=== PATIENT | female | born 1965 | race Caucasian/White ===

== ENCOUNTER 2017-02-25 13:47 | Emergency (ER) | payer OTHER ==
[~2017-02-25 13:47] MED LIST: LORA-392 PO; Z.0.NO CURRENT MEDS
[2017-02-25 13:53] VITALS: BP 192/83; PULSE 94; RESP 20; TEMP 98.4; O2SAT 97
[2017-02-25] MEDS ORDERED: DOXY100C PO (14:13)
[2017-02-25] MEDS ORDERED: MEDR4PAK PO (14:13)
--- NOTE | 2017-02-25 14:14 | PD ---
HPI Chief Complaint: Neuro Symptoms/ Deficits Time Seen by Provider: 14:04 Travel History International Travel<30 days: No Contact w/Intl Traveler<30days: No Traveled to known affect area: No History of Present Illness HPI PATIENT C/O RIGHT SIDED FACE UNEQUAL ABILITY TO MOVE MUSCLES SINCE 7AM, HAS BEEN TAKING CARE OF DOGS THAT HANG OUT WITH DEERS AND SHE REMOVED TICKS FROM THEM. ABLE TO TOLERATED PO AND ABLE TO SWALLOW WELL, OTHERWISE SHE IS AT HER NORMAL STATE. [facility] PMHX:DENEIS PSHX:DENIES PFSH Past Medical History Diminished Hearing: No ?: Not : 0 Para: 0 Past Surgical History Eye Surgery: Yes (BILATERAL EYE SURGERY.) Social History Alcohol Use: No Tobacco Use: No Substance Use: No Allergies-Medications (Allergen,Severity, Reaction): Coded Allergies: penicillin G (Unverified Allergy, Intermediate, HIVES, 10/06/16) Reported Meds & Prescriptions Reported Meds & Active Scripts Active Doxycycline Hyclate 100 Mg Cap 100 Mg PO BID Medrol Dosepak (Methylprednisolone) 4 Mg Dspk 4 Mg PO DIRECTED Per Pharmacist direction Reported Ativan (Lorazepam) 0.5 Mg Tab 0.5 Mg PO TID No Current Meds (Miscellaneous Medication) Misc Review of Systems Except as stated in HPI: all other systems reviewed are Neg General / Constitutional: No: Fever Eyes: No: Visual changes HENT: No: Headaches Cardiovascular: No: Chest Pain or Discomfort Respiratory: No: Shortness of Breath Gastrointestinal: No: Abdominal Pain Genitourinary: No: Dysuria Musculoskeletal: No: Pain Skin: No Rash Neurologic: Positive: Weakness (FACIAL) Psychiatric: No: Depression Endocrine: No: Polydipsia Hematologic/Lymphatic: No: Easy Bruising Physical Exam Narrative GENERAL: SKIN: Warm and dry. HEAD: Atraumatic. Normocephalic. RIGHT HEMIFACE IS PARALYZED INCLUDING HER FOREHEAD C/W PERIPHERAL PARALYSIS EYES: Pupils equal and round. No scleral icterus. No injection or drainage. ENT: No nasal bleeding or discharge. Mucous membranes pink and moist. NECK: Trachea midline. No JVD. CARDIOVASCULAR: Regular rate and rhythm. RESPIRATORY: No accessory muscle use. Clear to auscultation. Breath sounds equal bilaterally. GASTROINTESTINAL: Abdomen soft, non-tender, nondistended. MUSCULOSKELETAL: Extremities without clubbing, cyanosis, or edema. No obvious deformities. NEUROLOGICAL: Awake and alert. No obvious cranial nerve deficits. Motor grossly within normal limits. Five out of 5 muscle strength in the arms and legs. Normal speech. PSYCHIATRIC: Appropriate mood and affect; insight and judgment normal. Data Data Last Documented VS Vital Signs Date Time Temp Pulse Resp B/P (MAP) Pulse Ox O2 Delivery O2 Flow Rate FiO2 02/25/17 14:22 02/25/17 13:53 98.4 94 20 97 Room Air Orders Orders Ed Discharge Order (02/25/17 14:14) MDM Medical Decision Making Medical Screen Exam Complete: Yes Emergency Medical Condition: Yes Medical Record Reviewed: Yes Differential Diagnosis CVA V BELLS PALSY Narrative Course patient's exam consistent with peripheral palsy and right eyelid though slightly weaker can actually close all the way down to protect eye. patient was still advise to tape right eyelid shut when sleeping Diagnosis Primary Impression: Right-sided Ulloa's palsy Patient Instructions: Ulloa Palsy (ED), General Instructions Additional Instructions: USE LACRILUBE JELLY TO PLACE ON YOUR RIGHT EYE TO AVOID DRYING TO IT YOU WILL HAVE TROUBLE KEEPING YOUR EYELID CLOSED, YOU WILL NEED TO TAPE YOUR EYELID SHUT AT NIGHT TIME OR WHENEVER YOU CANNOT KEEP MOIST WITH LACRILUBE Scripts Doxycycline Hyclate (Doxycycline Hyclate) 100 Mg Cap 100 MG PO BID for Infection, #20 CAP 0 Refills Prov: Devin Betts MD 02/25/17 Methylprednisolone Dosepak (Medrol Dosepak) 4 Mg Dspk 4 MG PO DIRECTED, #1 DSPK 0 Refills Per Pharmacist direction Prov: Devin Betts MD 02/25/17 Disposition: 01 DISCHARGE HOME Condition: Stable Devin Betts MD Feb 25, 2017 14:14
== END 2017-02-25 14:22 | disposition home or self-care (01) ==
LOC: NED 13:47
DX: G51.0 Bell's palsy (principal); Z88.0 Allergy status to penicillin
CPT/HCPCS: 99284